=== PATIENT | female | born 1950 | race Two or more races ===

== ENCOUNTER 2022-12-10 08:15 | Inpatient (IN) | payer OTHER ==
[~2022-12-10] VITALS: Ht 165.1 cm; Wt 99.3 kg
[2022-12-10] MEDS ORDERED: DIOVAN160 M1 PO (09:40)
[2022-12-10] MEDS ORDERED: HYDROCHLOROTH12.5 MG PO (09:40)
[2022-12-10] MEDS ORDERED: LIPIT PO (09:41)
[2022-12-10] MEDS ORDERED: TOPROL XL50 M1 PO (09:41)
[2022-12-10] MEDS ORDERED: LEVOTHYROXINE25 MCG PO (09:41)
[2022-12-12] MEDS ORDERED: ATORVASTATIN CA20 MG (10:19)
== END 2022-12-13 18:24 | DRG 470 ==
LOC: O/R 12-11 05:15 → SURG 12-11 05:15 → SURH 12-11 08:15 → SURG 12-11 12:09
PROVIDERS: ADMIT Orthopaedic Surgery; ATTEND Orthopaedic Surgery
PROC: 3E0F7SF Introduction of Other Gas into Respiratory Tract, Via Natural or Artificial Opening (ICD-10-PCS; 2022-12-11)
PROC: 0SRC0JZ Replacement of Right Knee Joint with Synthetic Substitute, Open Approach (ICD-10-PCS; principal; 2022-12-11 09:00)
DX: M17.11 Unilateral primary osteoarthritis, right knee (principal); D62 Acute posthemorrhagic anemia; M85.661 Other cyst of bone, right lower leg; R26.89 Other abnormalities of gait and mobility; E66.01 Morbid (severe) obesity due to excess calories; I10 Essential (primary) hypertension; E78.5 Hyperlipidemia, unspecified; E03.9 Hypothyroidism, unspecified

== ENCOUNTER 2024-02-27 08:15 | Inpatient (IN) | payer OTHER ==
[~2024-02-27] VITALS: Ht 152.4 cm; Wt 102.1 kg
[~2024-02-27 08:15] MED LIST: ATORVASTATIN CA20 MG; DIOVAN160 M1 PO; HYDROCHLOROTH12.5 MG PO; LEVOTHYROXINE25 MCG PO; LIPIT PO; TOPROL XL50 M1 PO
[2024-02-27 09:58] LABS: HEMATOCRIT 36.9 % (36.0-45.00); HEMOGLOBIN 12.6 g/dL (12.0-15.00); MEAN CELL VOLUME 83.7 fL (80.00-100.00); MEAN CORPUSCULAR HEMOGLOBIN 28.5 pg (27.00-32.0); PLATELET COUNT 482 K/uL (150-450); RED BLOOD COUNT 4.41 M/uL (4.00-6.00); RED CELL DISTRIBUTION WIDTH 14.7 % (11.5-14.5)
[2024-02-27 10:08] LABS: PH,URINE 6.5 (5.0-8.0); URINE APPEARANCE Cloudy; URINE BILIRRUBIN Negative (NEGATIVE); URINE BLOOD Small; URINE COLOR Dark Yellow; URINE GLUCOSE Negative (NEGATIVE); URINE KETONE Trace (NEGATIVE); URINE LEUKOCYTE Small; URINE NITRATE Negative; URINE PROTEIN 30 (NEGATIVE)
[2024-02-27 10:12] LABS: URINE BACTERIA 4577.4 uL (0.0-1933); URINE EPITHELIAL CELLS 103.2 uL (0.0-38.8); URINE RBC 123.3 uL (0.0-20.8); URINE WBC 42.2 uL (0.0-23.2)
[2024-02-27 10:19] LABS: INR 0.97; PARTIAL THROMBOPLASTIN TIME 29.2 SECONDS (22.0-34.0); PROTHROMBIN TIME 10.2 SECONDS (9.0-11.5)
[2024-02-27 10:39] LABS: URINE CAST 1.22 uL (0.0-1.40)
[2024-02-27 10:42] LABS: ALBUMIN 3.7 gm/dL (3.4-5.0); BILIRUBIN TOTAL 0.39 mg/dL (0.3-1.2); CALCIUM 9.7 mg/dL (8.5-10.1); CREATININE SERUM 0.66 mg/dL (0.55-1.02); GFR 88.03; GLOBULINA 4.5 G/DL (2.4-3.5); POTASSIUM 5.24 mEq/L (3.5-5.1); TOTAL PROTEIN 8.2 gm/dL (6.4-8.2)
[2024-03-03] MEDS ORDERED: MORPHINE SULFATE 4 MG/ML VIAL IV SCH (11:30)
[2024-03-03] MEDS ORDERED: VANCOMYCIN HCL 1,000 MG VIAL IR SCH (11:30)
[2024-03-03] MEDS ORDERED: BUPIVACAINE HCL 30 ML VIAL IJ SCH (11:30)
[2024-03-03] MEDS ORDERED: TRANEXAMIC ACID 100MG/1ML (1000MG) AMPUL IV SCH ×2 (11:30)
[2024-03-03] MEDS ORDERED: CEFAZOLIN SODIUM 1,000 MG VIAL IV SCH ×2 (11:30→12:00)
[2024-03-03] MEDS ORDERED: KETOROLAC TROMETHAMINE 60 MG VIAL IM SCH (11:30)
[2024-03-03] MEDS ORDERED: LIDOCAINE HCL 1% 10ML VIAL IJ SCH (11:30)
[2024-03-03] MEDS ORDERED: ISOPROPYL ALCOHOL 30 ML OUNCE TOP SCH (11:30)
[2024-03-03] MEDS ORDERED: ONDANSETRON HCL 2 MG/ML VIAL IV PRN (11:45)
[2024-03-03] MEDS ORDERED: OxyCODONE HCL/APAP UD (PERCOCET) PO PRN (11:45)
[2024-03-03] MEDS ORDERED: MORPHINE SULFATE 4 MG/ML CARTRIDGE IV SCH (12:00)
[2024-03-03] MEDS ORDERED: ORPHENADRINE CITRATE 100 MG TABLET PO SCH (21:00)
[2024-03-03] MEDS ORDERED: GABAPENTIN 100 MG CAPSULE PO SCH (21:00)
[2024-03-04 01:35] LABS: HEMATOCRIT 32.6 % (36.0-45.00); HEMOGLOBIN 10.8 g/dL (12.0-15.00); MEAN CELL VOLUME 83.3 fL (80.00-100.00); MEAN CORPUSCULAR HEMOGLOBIN 27.5 pg (27.00-32.0); PLATELET COUNT 395 K/uL (150-450); RED BLOOD COUNT 3.92 M/uL (4.00-6.00); RED CELL DISTRIBUTION WIDTH 14.4 % (11.5-14.5)
[2024-03-04] MEDS ORDERED: ENOXAPARIN SODIUM 30 MG/0.3 ML SYRINGE SUBCUTANEO SCH (09:00)
[2024-03-05 01:32] LABS: HEMATOCRIT 31.4 % (36.0-45.00); MEAN CELL VOLUME 82.7 fL (80.00-100.00); PLATELET COUNT 357 K/uL (150-450); RED CELL DISTRIBUTION WIDTH 14.4 % (11.5-14.5)
[2024-03-05 01:36] LABS: HEMOGLOBIN 10.3 g/dL (12.0-15.00); MEAN CORPUSCULAR HEMOGLOBIN 27.1 pg (27.00-32.0)
[2024-03-05 12:39] LABS: CALCIUM 8.5 mg/dL (8.5-10.1); CREATININE SERUM 0.48 mg/dL (0.55-1.02); GFR 127.13; POTASSIUM 3.49 mEq/L (3.5-5.1)
== END 2024-03-05 14:45 | disposition home or self-care (01) | DRG 470 ==
LOC: OB/GYN 03-03 06:20 → O/R 03-03 06:20 → SURG 03-03 07:00 → OB/GYN 03-03 15:05
PROVIDERS: ADMIT Orthopaedic Surgery; ATTEND Orthopaedic Surgery
PROC: 0SRD0JZ Replacement of Left Knee Joint with Synthetic Substitute, Open Approach (ICD-10-PCS; principal; 2024-03-03 07:00)
DX: M17.12 Unilateral primary osteoarthritis, left knee (principal); M85.662 Other cyst of bone, left lower leg; I10 Essential (primary) hypertension; E03.9 Hypothyroidism, unspecified